=== PATIENT | female | born 1945 | race Caucasian/White ===

== ENCOUNTER 2018-09-17 00:18 | Emergency (ER) | payer MEDICARE, OTHER ==
[~2018-09-17] VITALS: Ht 162.6 cm; Wt 63.5 kg
[2018-09-17] MEDS ORDERED: SODIUM CHLORIDE 0.9% 500ML 500 ML IV ONE (02:00)
--- NOTE | 2018-09-17 02:21 | NUR ---
spoke to anna, hold off on 500cc bolus for now since bp is stabalizing, will continue to monitor
--- NOTE | 2018-09-17 02:33 | Diagnostic Imaging Report ---
EXAMINATION: CHEST SINGLE (PORTABLE) COMPARISON: None INDICATION: Hypotension ^LOW BP ^[id number] ^[id number] DISCUSSION: Frontal view of the chest obtained at 0210 hours. HEART AND MEDIASTINUM: The heart is normal in size. There are calcifications in the aortic arch and calcifications of the tracheobronchial tree. LINES: There appears to be a loop recorder device in the left upper quadrant. LUNGS: The lungs are well inflated and clear. Mild right apical pleural-parenchymal thickening. Diffuse bronchial wall thickening suggestive of bronchitis, either acute or chronic. No pneumonia or pulmonary edema. PLEURA: No pleural effusion or pneumothorax. BONES AND SOFT TISSUES: No focal osseous lesion. The soft tissues are normal. IMPRESSION: Bronchial wall thickening suggestive of bronchitis, either acute or chronic. No infiltrates. Signed by: Dr. Sachin Castillo MD on 09/17/2018 2:29 AM
--- NOTE | 2018-09-17 03:26 | NUR ---
anna does not want to have active orders executed, no labs to be drawn, charge nurse isabel sue informed
[2018-09-17 04:18] VITALS: BP 136/53
== END 2018-09-17 04:35 | disposition home or self-care (01) ==
LOC: ER 00:18
DX: T46.5X5A Adverse effect of other antihypertensive drugs, initial encounter (principal); T46.5X1A Poisoning by other antihypertensive drugs, accidental (unintentional), initial encounter; Y92.008 Other place in unspecified non-institutional (private) residence as the place of occurrence of the external cause; I10 Essential (primary) hypertension; I50.9 Heart failure, unspecified; N18.9 Chronic kidney disease, unspecified; Z85.3 Personal history of malignant neoplasm of breast; F17.210 Nicotine dependence, cigarettes, uncomplicated
CPT/HCPCS: 71045; 93005; 99283